=== PATIENT | female | born 1990 | race Caucasian/White ===

== ENCOUNTER → 2017-02-16 | Outpatient (CLI) | payer BC ==
[2016-03-27 12:50] VITALS: BP 105/65
[2017-02-16 15:19] LABS: CRYPTOSPORIDIUM PARVUM ANTIGEN NEGATIVE (NEGATIVE); GIARDIA LAMBLIA ANTIGEN NEGATIVE (NEGATIVE)
== END ==
LOC: LAB 13:10
PROVIDERS: ATTEND Internal Medicine
DX: R19.7 Diarrhea, unspecified (principal); K29.60 Other gastritis without bleeding
CPT/HCPCS: 82270; 87045; 87205; 87328; 87329; 87336; 87427; 87493; 87899

== ENCOUNTER 2019-03-20 12:32 | Inpatient (IN) ==
[2019-03-20 12:48] VITALS: BMI 30.2
[2019-03-20 13:02] LABS: BILIRUBIN,URINE NEGATIVE (NEGATIVE); BLOOD/HEMOGLOBIN,URINE 3+ (NEGATIVE); GLUCOSE, URINE NEGATIVE (NEGATIVE); KETONES,URINE NEGATIVE (NEGATIVE); LEUKOCYTE ESTERASE ,URINE 1+ (NEGATIVE); NITRITES,URINE NEGATIVE (NEGATIVE); PROTEIN,URINE NEGATIVE (NEGATIVE); UROBILINOGEN,URINE NORMAL (NORMAL)
[2019-03-20 13:12] LABS: APPEARANCE,URINE CLEAR (CLEAR); BACTERIA,URINE TRACE /HPF (NEGATIVE); COLOR,URINE YELLOW (YELLOW); SQUAMOUS EPITHELIAL CELL,UR FEW /HPF (NEGATIVE)
[2019-03-20 13:12] LABS: AMNISURE ROM TEST NO MEMBRANES RUPTURE (NO RUPTURE)
[2019-03-20] MEDS ORDERED: LR 1000 ML IV 1,000 ML ONE (13:18)
[2019-03-20] MEDS ORDERED: D5LR 1L W PITOCIN 10 UNITS/L 10 UNITS/1,000 ML BAG IV ONE (13:18)
[2019-03-20] MEDS ORDERED: D5 1/2 NS 1000 ML 1,000 ML ONE (13:19)
[2019-03-20] MEDS ORDERED: PITOCIN ONE (13:19)
[2019-03-20] MEDS ORDERED: FENTANYL INJ 100 mcg ONE (13:19)
[2019-03-20] MEDS ORDERED: NAROPIN EPIDURAL 0.2% + FENTANYL 90MCG 60 ML EPI ONE (13:19)
[2019-03-20] MEDS ORDERED: D5 1/2 NS 1L W PITOCIN 20 UNITS/L 20 UNITS/1,000 ML BAG IV ONE (13:19)
[2019-03-20] MEDS ORDERED: REGLAN INJ 10 MG VIAL IVP PRN (14:03)
[2019-03-20] MEDS ORDERED: NUBAIN INJ 200 MG VIAL MULTIDOSE IVP PRN (14:03)
[2019-03-20] MEDS ORDERED: D5LR 1L W PITOCIN 10 UNITS/L 10 UNITS/1,000 ML BAG IV PRN (14:03)
--- NOTE | 2019-03-20 14:22 | DR.OB ---
OB Quick Note - Assessment/Plan Assessment/Plan: L&D 03/20/19 at 2:09pm Pitocin=2mu/min. S-No complaint except pain with CTX. O-Afebrile,VSS QDL=841 with good LTV, +accel, no decel. CTX=q 1 1/2 to 3 min., mild to moderate by palpation CVX=4cm/75%/0/VTX AROM with clear fluid. IUPC and FSE placed. A-IUP at 39 1/7 weeks in labor P-Cont. pitocin induction Anticipate
[2019-03-20] MEDS ORDERED: D5 1/2 NS 1000 ML 1,000 ML IV SCH (15:00)
[2019-03-20] MEDS ORDERED: PHENERGAN INJ 25 MG IM PRN (20:01)
--- NOTE | 2019-03-20 20:01 | DR.OB ---
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 Head directly OA and but patient tiring with poor effort. Vacuum applied with good progress but popped off after one push. Vacuum re-applied with good fit and head delivered over intact perineum with one CTX. Vacuum released. Nose and mouth bulb suctioned. No nuchal cord. Body delivered over intact perineum. Cord clamped x 2 and cut. handed to attendants. Cord sent for gases. Placenta delivered spontaneously / intact / 3 vessel cord. No CVX tears. A small midline second degree tear noted and repaired with 0-vicryl in usual fashion. Viable female , VTX/OA, wt=7'9" and 8/9, stable to NBN. Mother stable to RR. EPJ=[id number].
[2019-03-20] MEDS: D5 1/2 NS 1000 ML 1,000 ML with PITOCIN 20 UNITS IV SCH ×2 (20:38)
[2019-03-20] MEDS ORDERED: MILK OF MAGNESIA PO PRN (20:40)
[2019-03-20] MEDS ORDERED: ADACEL or BOOSTRIX TDaP VACCINE IM ONE (20:40)
[2019-03-20] MEDS ORDERED: DERMOPLAST SPRAY TOP PRN (20:40)
[2019-03-20] MEDS ORDERED: AMBIEN PO PRN (20:40)
[2019-03-20] MEDS: ZANTAC PO SCH (22:00)
[2019-03-20] MEDS: MOTRIN TAB 800 MG PO PRN (22:00)
[2019-03-21] MEDS: D5 1/2 NS 1000 ML 1,000 ML with PITOCIN 20 UNITS IV SCH ×6 (04:12→20:58)
[2019-03-21 05:30] LABS: HEMATOCRIT 35.5 % (36.0-47.0); HEMOGLOBIN 12.1 g/dL (12.0-16.0)
[2019-03-21] MEDS: MOTRIN TAB 800 MG PO PRN ×3 (06:41→20:58)
[2019-03-21] MEDS: PRENATAL PLUS PO SCH (08:54)
[2019-03-21] MEDS: ZANTAC PO SCH ×2 (08:54→20:57)
[2019-03-22] MEDS: D5 1/2 NS 1000 ML 1,000 ML with PITOCIN 20 UNITS IV SCH ×2 (05:00)
[2019-03-22] MEDS: MOTRIN TAB 800 MG PO PRN (05:35)
[2019-03-22] MEDS: PRENATAL PLUS PO SCH (08:15)
[2019-03-22] MEDS: ZANTAC PO SCH (08:16)
[2019-03-22 09:24] VITALS: BP 114/74
== END 2019-03-22 11:10 | disposition home or self-care (01) | DRG 807 ==
LOC: ER 12:32 → LD 13:30 → MED/SURG 20:52
PROVIDERS: ADMIT Specialist; ATTEND Specialist
DX: Z3A.39 39 weeks gestation of pregnancy; O70.1 Second degree perineal laceration during delivery; Z23 Encounter for immunization; Z37.0 Single live birth
CPT/HCPCS: 36415; 59409; 81001; 84112; 85014; 85018; 90715; 96365; 99284; A4216; A4222; S0197; J2590; J3010; J7120; S5010

== ENCOUNTER 2024-09-12 06:17 | Observation (INO) ==
[2024-09-12] MEDS: NOZIN NASAL SANITIZER TP ONE (06:42)
[2024-09-12] MEDS: D5 1/2 NS 1,000 ML 1,000 ML IV ONE ×2 (06:45→08:26)
[2024-09-12] MEDS: ANCEF VIAL 1 GRAM IVP ONE (06:48)
[2024-09-12] MEDS: ANCEF VIAL 1 GRAM ONE (07:26)
[2024-09-12] MEDS: NS 100 ML IV 100 ML ONE (07:26)
[2024-09-12] MEDS: TORADOL 30 MG VIAL ONE (07:28)
[2024-09-12] MEDS: ZEMURON 100 MG VIAL ONE (07:28)
[2024-09-12] MEDS: ZOFRAN INJ 4 MG VIAL ONE (07:28)
[2024-09-12] MEDS: XYLOCAINE 2 % (PLAIN) ONE (07:28)
[2024-09-12] MEDS: FENTANYL VIAL INJ 100 mcg ONE (07:28)
[2024-09-12] MEDS: PEPCID 20 MG VIAL ONE (07:28)
[2024-09-12] MEDS: DILAUDID INJ ONE (07:28)
[2024-09-12] MEDS: VERSED ONE (07:28)
[2024-09-12] MEDS: DIPRIVAN VIAL 20 ML ONE (07:28)
[2024-09-12] MEDS: REGLAN INJ 10 MG VIAL ONE (07:28)
[2024-09-12] MEDS: BETADINE SOLN ONE (07:50)
[2024-09-12] MEDS: VASOSTRICT INJ 20 UNITS VIAL ONE (07:56)
[2024-09-12] MEDS: EPHEDRINE SULFATE INJ ONE (08:07)
[2024-09-12] MEDS ORDERED: BENADRYL INJ 50 MG VIAL IVP PRN ×2 (08:12→09:56)
[2024-09-12] MEDS ORDERED: ZOFRAN INJ 4 MG VIAL IVP PRN ×2 (08:12→09:56)
[2024-09-12] MEDS ORDERED: BARHEMSYS INJ IVP PRN (08:12)
[2024-09-12] MEDS ORDERED: REGLAN INJ 10 MG VIAL IVP PRN (08:12)
[2024-09-12] MEDS: OFIRMEV IV 1000 MG VIAL 1,000 MG/100 ML VIAL IV ONE (08:26)
[2024-09-12] MEDS: BRIDION ONE (08:29)
[2024-09-12] MEDS: DILAUDID INJ IVP PRN (09:50)
[2024-09-12] MEDS ORDERED: NARCAN INJ IVP PRN (09:56)
[2024-09-12] MEDS ORDERED: TORADOL 30 MG VIAL IVP PRN (09:56)
[2024-09-12] MEDS: MORPHINE SULFATE PCA 30 MG IVP PRN (10:22)
[2024-09-12] MEDS: D5 1/2 NS 1,000 ML 1,000 ML IV SCH ×2 (14:08→15:00)
[2024-09-12] MEDS ORDERED: PERCOCET TAB 5/325 MG PO PRN (16:50)
[2024-09-12] MEDS ORDERED: VISTARIL PO PRN (16:53)
[2024-09-12] MEDS ORDERED: ATIVAN TAB 0.5 MG PO PRN (16:53)
[2024-09-12] MEDS: MOTRIN TAB 800 MG PO PRN (17:50)
[2024-09-12] MEDS: COLACE CAP 100 MG PO SCH (20:58)
[2024-09-13 05:29] LABS: BASOPHILS % (AUTO) 0.2 % (0.2-1.0); EOSINOPHILS # (AUTO) 0.1 x10^3/uL (0.0-0.2); EOSINOPHILS % (AUTO) 1.3 % (0.9-2.9); HEMATOCRIT 35.2 % (36.0-47.0); HEMOGLOBIN 12.2 g/dL (12.0-16.0); LYMPHOCYTES # (AUTO) 2.2 X10^3/uL (1.3-2.9); LYMPHOCYTES % (AUTO) 27.8 % (21.0-51.0); MEAN CORPUSCULAR HEMOGLOBIN 32.9 pg (27.0-34.0); MEAN CORPUSCULAR HGB CONC 34.7 g/dL (33.0-35.0); MEAN CORPUSCULAR VOLUME 94.7 fL (80.0-100.0); MEAN PLATELET VOLUME 7.9 fL (7.4-11.0); MONOCYTES # (AUTO) 0.5 x10^3/uL (0.3-0.8); MONOCYTES % (AUTO) 6.6 % (0.0-13.0); NEUTROPHILS % (AUTO) 64.1 % (42.0-75.0); PLATELET COUNT 299 X10^3/uL (150.0-450.0); RED BLOOD COUNT 3.72 X10^6/uL (3.5-5.4); RED CELL DISTRIBUTION WIDTH 13.1 % (11.6-16.5); WHITE BLOOD COUNT 7.8 X10^3/uL (3.6-10.0)
[2024-09-13 05:42] LABS: BLOOD UREA NITROGEN 5 mg/dL (7-18); CALCIUM 8.1 mg/dL (8.5-10.1); CARBON DIOXIDE 27.9 mmol/L (21-32); CHLORIDE 107 mmol/L (98-107); CREATININE 0.79 mg/dL (0.55-1.02); GLUCOSE 104 mg/dL (65-99); POTASSIUM 3.5 mmol/L (3.5-5.1); SODIUM 142 mmol/L (136-145); eGFR NON BLACK RACES > 60 (>60)
[2024-09-13] MEDS ORDERED: LEXAPRO ONE (08:16)
[2024-09-13] MEDS: NexIUM PO SCH (08:24)
[2024-09-13] MEDS: ZyrTEC TAB 10 MG PO SCH (08:25)
[2024-09-13] MEDS: LEXAPRO PO SCH (08:25)
[2024-09-13 10:12] VITALS: BP 112/66; PULSE 79; RESP 19; TEMP 97.7; O2SAT 96
== END 2024-09-13 08:45 | disposition home or self-care (01) ==
LOC: MED/SURG 06:17 → INTOOBSV 06:17
PROVIDERS: ADMIT Specialist; ATTEND Specialist
DX: R10.2 Pelvic and perineal pain; N92.0 Excessive and frequent menstruation with regular cycle; N94.5 Secondary dysmenorrhea